=== PATIENT | male | born 1965 ===

== ENCOUNTER 2019-01-07 06:50 | Inpatient (IN) | payer OTHER ==
[~2019-01-07] VITALS: Ht 165.1 cm; Wt 85.7 kg
[2019-01-07] VITALS (16 sets, daily range): BP systolic 109–154; BP diastolic 70–96
[~2019-01-07 06:50] MED LIST: NKM
[2019-01-07] MEDS ORDERED: ceFAZolin sod 2 GM in D5W 110 ML IVPB ONE (07:00)
--- NOTE | 2019-01-07 07:15 | Pre-Procedure Note/Attestation ---
Pre-Procedure Note/Attestation Complete Prior to Procedure Planned Procedure: not applicable Procedure Narrative: Artificial disc replacement C56 Indications for Procedure Pre-Operative Diagnosis: Herniation of C56 Attestation I attest that I discussed the nature of the procedure; its benefits; risks and complications; and alternatives (and the risks and benefits of such alternatives ), prior to the procedure, with the patient (or the patient's legal sales representative printing supplies). I attest that, if there was a reasonable possibility of needing a blood transfusion, the patient (or the patient's legal sales representative printing supplies) was given the [facility] standardized written summary, pursuant to the Carlos A Mindy Blood Safety Act ([place] Health and Safety Code # 1645, as amended). I attest that I re-evaluated the patient just prior to the surgery and that there has been no change in the patient's H&P, except as documented below: Osmel Hubbard MD Jan 07, 2019 07:14
--- NOTE | 2019-01-07 07:16 | Brief Operative Note ---
Immediate Post Operative Note Operative Note Chief Complaint: Neck pain and radiculopathy Pre-op Diagnosis: Herniation of C56 Procedure: Artificial disc replacement C56 Post-op Diagnosis: same as pre-op Findings: consistent w/pre-op dx studies Surgeon: Haydee Spent Grain Dryer: Sunil Anesthesiologist: OZIEL Anesthesia: general Specimen: none Complications: none Condition: stable Fluids: IVF Estimated Blood Loss: minimal Drains: none Implant(s) used?: Yes - prodisc c sz 5 Osmel Hubbard MD Jan 07, 2019 07:16
[2019-01-07] MEDS ORDERED: HYDROmorphone 1mg/ml Carpuject IVP PRN (07:30)
[2019-01-07] MEDS ORDERED: Milk of Magnesia 30ml Ud ORAL PRN (07:30)
[2019-01-07] MEDS ORDERED: Naloxone 0.4mg/ml Inj IVP PRN (07:30)
[2019-01-07] MEDS ORDERED: Morphine Sulfate 2mg/ml Inj(IV/IM USE ONLY) IV PRN (07:30)
[2019-01-07] MEDS ORDERED: Chloraseptic Spray 20mL Bottle ORAL PRN (07:30)
[2019-01-07] MEDS ORDERED: Metoclopramide 10mg/2ml Inj IVP PRN (07:30)
[2019-01-07] MEDS ORDERED: Morphine Sulfate 4mg/ml Inj (IV USE ONLY) IV PRN ×2 (07:30)
[2019-01-07] MEDS ORDERED: ACETAMINOPHEN500 MG ORAL (07:32)
[2019-01-07] MEDS ORDERED: Midazolam 2mg/2ml Inj ONE (08:53)
[2019-01-07] MEDS ORDERED: fentaNYL 100 mcg/2 mL IV ONE (08:53)
[2019-01-07] MEDS ORDERED: Lidocaine 1% MPF 10mg/ml 5ml ONE (08:59)
[2019-01-07] MEDS ORDERED: Phenylephrine 10mg/ml Vial ONE (09:13)
[2019-01-07] MEDS ORDERED: Bupivacaine w/Epi 0.5% 30ml Vial INJ ONE (10:05)
[2019-01-07] MEDS ORDERED: Vancomycin 1gm vial IVPB ONE ×2 (10:05→10:06)
[2019-01-07] MEDS ORDERED: Gelfoam Size TOPIC ONE (10:05)
[2019-01-07] MEDS ORDERED: Thrombin 5000 units TOPIC ONE ×2 (10:05→11:54)
[2019-01-07] MEDS ORDERED: Bacitracin 50000 Units Vial ONE (10:05)
[2019-01-07] MEDS ORDERED: Ketorolac 30mg Inj ONE (10:30)
[2019-01-07] MEDS ORDERED: NS Irrig 1000ml ONE (10:30)
[2019-01-07] MEDS ORDERED: LR 1000ml ONE (10:30)
[2019-01-07] MEDS ORDERED: Sterile Water Irrig 1000ml IRRIG ONE (10:30)
[2019-01-07] MEDS ORDERED: Neostigmine 1mg/ml 10ml Inj ONE (10:30)
[2019-01-07] MEDS ORDERED: Propofol 1,000mg/ 100ml btl IV ONE (10:30)
[2019-01-07] MEDS ORDERED: Succinylcholine 20mg/ml 10ml vial ONE (10:30)
[2019-01-07] MEDS ORDERED: Zemuron 50mg/5ml Inj IV ONE (10:30)
[2019-01-07] MEDS ORDERED: Morphine Sulfate 10mg/ml Inj ONE (11:23)
[2019-01-07] MEDS ORDERED: LR 1000ml 1,000 ML IVLG SCH (11:32)
--- NOTE | 2019-01-07 11:32 | Anethesia Preoperative Eval ---
Anesthesia Pre-op PMH/ROS General Date of Evaluation: Jan 07, 2019 Time of Evaluation: 10:20 Anesthesiologist: Silvestre ASA Score: ASA 2 Mallampati Score Class I : Soft palate, uvula, fauces, pillars visible Class II: Soft palate, uvula, fauces visible Class III: Soft palate, base of uvula visible Class IV: Only hard plate visible Mallampati Classification: Class II Surgeon: Haydee Diagnosis: Cervical radiculopathy Surgical Procedure: ACDF Anesthesia History: none Family History: no anesthesia problems Allergies: Coded Allergies: No Known Allergies (Unverified , 01/07/19) Medications: see eMAR Patient NPO?: Yes NPO Date: Jan 06, 2019 NPO Time: 2300 Past Medical History Cardiovascular: Denies: HTN, CAD, NM, valve dz, arrhythmia, other Pulmonary: Denies: asthma, COPD, FRITZ, other Gastrointestinal/Genitourinary: Reports: GERD; Denies: CRI, ESRD, other Neurologic/Psychiatric: Denies: dementia, CVA, depression/anxiety, TIA, other Endocrine: Denies: DM, hypothyroidism, steroids, other HEENT: Denies: cataract (L), cataract (R), glaucoma, KLAWOCK (L), [place] (R), other Hematology/Immune: Denies: anemia, DVT, bleeding disorder, other Musculoskeletal/Integumentary: Denies: OA, RA, DJD, DDD, edema, other Other: other - overweight PMH Narrative: as above PSxH Narrative: Hemorrhoids Anesthesia Pre-op Phys. Exam Physician Exam Last Vital Signs Date Time Temp Pulse Resp B/P (MAP) Pulse Ox O2 Delivery O2 Flow Rate FiO2 01/07/19 07:45 Room Air 01/07/19 07:30 97.1 66 18 133/91 (105) 97 Constitutional: NAD Neurologic: CN 2-12 intact Cardiovascular: RRR, no M/R/G Respiratory: CTA Gastrointestinal: S/NT/ND Airway Exam Mallampati Score: Class II MO: full Neck: stiff ROM: limited Teeth: missing Dentures: no upper, no lower Anesthesia Pre-op A/P Labs see chart Studies Pre-op Studies: EKG - NSR, CXR - WNL, echo - EF 55-60% Risk Assessment & Plan Assessment: ASA 2 Plan: GA with ETT neuromonitoring Status Change Before Surgery: No Pre-Antibiotics Drug: Ancef 2 gr. Given Within 1 Hr of Incision: Yes Time Given: 10:52 New Rivers MD Jan 07, 2019 11:32
[2019-01-07] MEDS ORDERED: Glycopyrrolate 0.2mg/ml 1ml Vial ONE (11:43)
[2019-01-07] MEDS ORDERED: DiphenhydrAMINE 50mg/ml Inj IVP PRN (11:45)
[2019-01-07] MEDS ORDERED: Ketorolac 30mg Inj IV PRN (11:45)
[2019-01-07] MEDS ORDERED: Meperidine 50mg/ml Inj(FOR RIGORS ONLY) IV PRN (11:45)
[2019-01-07] MEDS ORDERED: Hydromorphone 0.5mg/0.5ml inj IVP PRN (11:45)
[2019-01-07] MEDS ORDERED: Midazolam 2mg/2ml Inj IVP PRN (11:45)
[2019-01-07] MEDS ORDERED: Acetaminophen (Non formulary) 100 ML IV ONE (11:45)
--- NOTE | 2019-01-07 12:35 | Immediate Post-Op Evaluation ---
Immediate Post-Op Evalulation Immediate Post-Op Evalulation Procedure: ACDF C5-C6 Date of Evaluation: Jan 07, 2019 Time of Evaluation: 12:35 IV Fluids: 1200 Blood Products: none Estimated Blood Loss: 50 Urinary Output: 150 Blood Pressure Systolic: 146 Blood Pressure Diastolic: 76 Pulse Rate: 68 Respiratory Rate: 20 O2 Sat by Pulse Oximetry: 98 Temperature (Fahrenheit): 97.6 Pain Score (1-10): 1 Nausea: No Vomiting: No Complications none Patient Status: reacts, patent, extubated, none Hydration Status: adequate New Rivers MD Jan 07, 2019 12:35
--- NOTE | 2019-01-07 12:39 | NUR ---
CASE MANAGEMENT:REVIEW 53 YR OLD MALE HERE FOR ELECTIVE SURGERY SI: NECK PAIN AND RADICULOPATHY 97.1 66 18 133/91 97% ON RA IS: TO SURGERY FOR; ARTIFICIAL DISC REPLACEMENT C56 IV ANCEF Q8HRS IV DECADRON Q6HRS IV DILAUDID PRN : TO MED/SURG 3 EAST POST OP
--- NOTE | 2019-01-07 14:10 | NUR ---
NURSE NOTES: PATIENT RECEIVED FROM PACU ON BRET, AOX4. SON AT BEDSIDE. REPORT RECEIVED AT BEDSIDE FROM BETTY SHOP SUPERVISOR. SURGICAL SITE ASSESSED; C/D/I.NEUROVASCULAR CHECKS WNL. DENIES WEAKNESS OR PAIN. SKIN W/D. QUESTIONS ANSWERED; NEEDS MET. PT/ SON ORIENTED TO ROOM. BED IN LOWEST AND LOCKED POSITION. CALL LIGHT WITHIN REACH. WILL CONTINUE TO MONITOR.
--- NOTE | 2019-01-07 14:17 | 48 Hour Post Anesthesia Eval ---
Post Anesthesia Evaluation Procedure: ACDF C5-C6 Date of Evaluation: Jan 07, 2019 Time of Evaluation: 14:16 Blood Pressure Systolic: 116 0: 72 Pulse Rate: 68 Respiratory Rate: 18 Temperature (Fahrenheit): 97.2 O2 Sat by Pulse Oximetry: 98 Airway: patent Nausea: No Vomiting: No Pain Intensity: 2 Hydration Status: adequate Cardiopulmonary Status: stable Mental Status/LOC: patient returned to baseline Follow-up Care/Observations: N/a Post-Anesthesia Complications: none Follow-up care needed: ready to discharge New Rivers MD Jan 07, 2019 14:17
--- NOTE | 2019-01-07 15:03 | Diagnostic Imaging Report ---
INDICATION: Pain, intraoperative TECHNIQUE: Intraoperative imaging Fluoroscopy time: 27.8 seconds Total dose: 0.95989 mGym2 Total number of images: 3 COMPARISON: None FINDINGS: 6 surgical tool initially projects over the C5 vertebral body. Subsequent images demonstrate placement of a disc prosthesis at C5-6. This appears well aligned IMPRESSION: Intraoperative imaging, as described
[2019-01-07] MEDS: NS w/KCl 20mEq 1000ml 1,000 ML IV SCH (15:19)
[2019-01-07] MEDS: ceFAZolin sod 1 GM in D5W 55 ML IV SCH (18:13)
[2019-01-07] MEDS: Dexamethasone 4mg/ml vial IVP SCH (18:13)
[2019-01-07] MEDS: Docusate 100mg cap ORAL SCH (18:13)
--- NOTE | 2019-01-07 18:54 | NUR ---
NURSE NOTES: PATIENT REMAINS STABLE. C/O "SORE THROAT". ADMINISTER CEPACOL AND THROAT ORDERED BY SURGEON. SYMPTOMS IMPROVED. TOLERATING SOFT DIET. DENIES SURGICAL ANTERIOR NECK PAIN.VSS. AFEBRILE. CMS WNL. NEUROVASCULAR CHECKS WNL. BED IN LOWEST AND LOCKED POSITION. CALL LIGHT WITHIN REACH.
--- NOTE | 2019-01-07 19:30 | NUR ---
NURSE NOTES: Received patient in no apparent distress. A&OX4. IV site patent and intact. Surgical dressing on neck noted, dry and intact. Family members are at bedside. Bed in lowest position. Call light within reach. Will continue to monitor.
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
[2019-01-08] VITALS (9 sets, daily range): BP systolic 129–157; BP diastolic 80–127
[2019-01-08] MEDS: Dexamethasone 4mg/ml vial IVP SCH (00:15)
[2019-01-08] MEDS: NS w/KCl 20mEq 1000ml 1,000 ML IV SCH ×3 (00:16→22:58)
[2019-01-08] MEDS: ceFAZolin sod 1 GM in D5W 55 ML IV SCH ×2 (01:25→10:35)
[2019-01-08] MEDS: HYDROcodone/Acetamin 7.5/325 tab ORAL PRN ×2 (01:33→23:07)
--- NOTE | 2019-01-08 03:36 | NUR ---
NURSE NOTES: Call and left message to Dr. Hubbard regarding HR 121. Waiting a call back.
--- NOTE | 2019-01-08 05:52 | NUR ---
NURSE NOTES: Dr. Hubbard called, obtained discontinue Dexamethasone and notify Dr. Poole.
--- NOTE | 2019-01-08 06:00 | NUR ---
NURSE NOTES: Call and left message to Dr. Poole regarding increased HR. Waiting a call back.
--- NOTE | 2019-01-08 07:00 | NUR ---
NURSE NOTES: Received call from Dr. Poole. Obtained EKG order.
--- NOTE | 2019-01-08 08:10 | NUR ---
HAND-OFF: Report given to Myrna HOLLAND.
--- NOTE | 2019-01-08 08:46 | General Progress Note ---
Assessment/Plan Assessment/Plan: Herniation of C56 Artificial disc replacement C56 hypertension sinus tachycardia PLAN 1. incentive spirometry 2. monitor hemodynamics; ECG 3. PT evaluation and therapy 4. Hydration 5. Pain management and blood pressure support 6. discharge once stable with outpatient follow up Subjective Allergies: Coded Allergies: No Known Allergies (Unverified , 01/07/19) Subjective increase heart rate and BP ? after decadron Objective Last 24 Hour Vital Signs Date Time Temp Pulse Resp B/P (MAP) Pulse Ox O2 Delivery O2 Flow Rate FiO2 01/08/19 05:51 98.2 111 19 145/104 (118) 95 01/08/19 04:34 98.2 110 19 146/104 (118) 95 01/08/19 04:00 98.3 115 19 139/103 (115) 95 01/08/19 03:30 98.2 121 19 138/104 (115) 95 01/07/19 23:40 98.7 106 18 112/83 (93) 95 01/07/19 21:00 Nasal Cannula 2.0 01/07/19 20:00 98.7 103 18 125/89 (101) 96 01/07/19 16:40 97.9 63 19 118/72 (87) 96 01/07/19 15:40 98.0 61 20 109/72 (84) 01/07/19 15:10 98.5 75 19 118/77 (91) 99 01/07/19 14:40 97.7 70 18 116/70 (85) 97 01/07/19 14:17 68 18 98 01/07/19 14:10 98.5 82 18 123/83 (96) 95 01/07/19 13:49 97.6 78 17 118/75 99 Nasal Cannula 3 01/07/19 13:30 70 15 126/76 100 Nasal Cannula 3 01/07/19 13:15 72 16 137/73 100 Nasal Cannula 3 01/07/19 13:10 71 17 130/78 100 Nasal Cannula 3 01/07/19 12:50 74 18 125/75 100 Nasal Cannula 3 01/07/19 12:42 70 15 154/90 100 Nasal Cannula 3 01/07/19 12:37 66 15 143/92 98 Simple Mask 6 01/07/19 12:35 68 20 98 01/07/19 12:32 97.1 72 15 146/96 100 Simple Mask 6 Intake and Output 01/07/19 01/08/19 18:59 06:59 Intake Total 1400 ml 1255 ml Output Total 350 ml 125 ml Balance 1050 ml 1130 ml Intake IV Total 1400 ml 1255 ml Output Urine Total 300 ml 125 ml Estimated Blood Loss 50 ml # Voids 1 1 Height (Feet): 5 Height (Inches): 5.00 Weight (Pounds): 189 Objective WDWN NAD clear breath sounds bilaterally without rhonchi or wheeze S1S2RR mildly tachy without MRG NABS nontender no HSM no CCE nonfocal David Poole MD Jan 08, 2019 08:46
--- NOTE | 2019-01-08 09:00 | NUR ---
NURSE NOTES: Patient is alert and oriented,respirations unlabored ,IV fluids infusing as ordered.Heart rate noted tachycardia,but heart rate is regular,no complaint of chest pain.Dermabond dressing to the throat are intact,no drainage no swelling noted at this time.Swallow without difficult.Call light within reach ,bed alarm is on.
[2019-01-08] MEDS ORDERED: Tubing IV Secondary IV ONE (09:38)
[2019-01-08] MEDS: Docusate 100mg cap ORAL SCH ×2 (10:35→19:13)
--- NOTE | 2019-01-08 11:45 | General Surgery Progress Note ---
General Surgery-Progress Note Subjective Day of Surgery: 01/07/19 Reason for Consult Postoperative day 1 Procedure Performed Artificial disc replacement C56 Chief Complaint: Laboured breathing Symptoms: improved, pain absent, other - Patient has had laboured breathing and elevated blood pressures Additional Comments Dr Tracy has been notified and responded immediately by prescribing Norvasc, CXR and bilateral lower extremity SCDs Objective Last 24 Hour Vital Signs Date Time Temp Pulse Resp B/P (MAP) Pulse Ox O2 Delivery O2 Flow Rate FiO2 01/08/19 11:12 Nasal Cannula 2.0 01/08/19 08:00 98.5 115 18 129/104 (112) 94 01/08/19 05:51 98.2 111 19 145/104 (118) 95 01/08/19 04:34 98.2 110 19 146/104 (118) 95 01/08/19 04:00 98.3 115 19 139/103 (115) 95 01/08/19 03:30 98.2 121 19 138/104 (115) 95 01/07/19 23:40 98.7 106 18 112/83 (93) 95 01/07/19 21:00 Nasal Cannula 2.0 01/07/19 20:00 98.7 103 18 125/89 (101) 96 01/07/19 16:40 97.9 63 19 118/72 (87) 96 01/07/19 15:40 98.0 61 20 109/72 (84) 01/07/19 15:10 98.5 75 19 118/77 (91) 99 01/07/19 14:40 97.7 70 18 116/70 (85) 97 01/07/19 14:17 68 18 98 01/07/19 14:10 98.5 82 18 123/83 (96) 95 01/07/19 13:49 97.6 78 17 118/75 99 Nasal Cannula 3 01/07/19 13:30 70 15 126/76 100 Nasal Cannula 3 01/07/19 13:15 72 16 137/73 100 Nasal Cannula 3 01/07/19 13:10 71 17 130/78 100 Nasal Cannula 3 01/07/19 12:50 74 18 125/75 100 Nasal Cannula 3 01/07/19 12:42 70 15 154/90 100 Nasal Cannula 3 01/07/19 12:37 66 15 143/92 98 Simple Mask 6 01/07/19 12:35 68 20 98 01/07/19 12:32 97.1 72 15 146/96 100 Simple Mask 6 I&O Intake and Output 01/07/19 01/08/19 18:59 06:59 Intake Total 1400 ml 1255 ml Output Total 350 ml 125 ml Balance 1050 ml 1130 ml Intake IV Total 1400 ml 1255 ml Output Urine Total 300 ml 125 ml Estimated Blood Loss 50 ml # Voids 1 1 Dressing: dry Wound: clean, dry, intact Drains: none Cardiovascular: RSR Respiratory: decreased breath sounds - in bilateral lower quadrants Abdomen: soft, non-tender, present bowel sounds Extremities: no edema, no tenderness, no cyanosis Assessment Post-op Diagnosis s/p C56 ADR Plan Problems: (1) HNP (herniated nucleus pulposus), cervical Assessment & Plan: I was called in regards to this pt by the night nursing team They noticed elevated blood pressures following steroid treatments So at 5am I discontinued further steroids I evaluated the patient this morning He was able to perform the incentive spirometer without difficulty His incision is soft and non swollen so there does not appear to be any hematoma or other compressing factor there however he appears in respiratory distress in regards to some laboured breathing We did a new set of vitals and his blood pressure was still elevated but he has no fevers or other signs of distress I then spoke to Dr Tracy who performed his preoperative clearance Dr Tracy has been notified and responded immediately by prescribing Norvasc, CXR and bilateral lower extremity SCDs I have ordered albuterol breathing treatments and will be evaluating him closely for his response Osmel Hubbard MD Jan 08, 2019 11:45
--- NOTE | 2019-01-08 12:02 | Diagnostic Imaging Report ---
EXAM: XR Chest, 2 Views CLINICAL HISTORY: POST-OP TECHNIQUE: Frontal and lateral views of the chest. COMPARISON: None FINDINGS: Hardware: None. Lungs/pleura: Normal. No focal consolidation. No pleural effusion or pneumothorax. Heart/mediastinum: Normal. No cardiomegaly. Soft tissues: Unremarkable. Bones: No acute fracture. Postsurgical changes of the lower cervical spine. Degenerative changes of the acromioclavicular joints. Upper abdomen: Normal. IMPRESSION: No acute disease identified.
[2019-01-08] MEDS: Albuterol ud Inhalation HHN SCH ×3 (13:57→23:13)
--- NOTE | 2019-01-08 14:03 | NUR ---
PT Note PT beltran completed, treatment initiated. Gait training initially done with the FWW; progressed to gait training without the FWW. Also noted patient to have audible wheezing during treatment; nurse was made aware. Pt needs PT services to train and instruct on proper body mechanics and exercises to improve his functional mobility and gait. Addendum: 01/08/19 at 1404 by ROSETTA SPANGLER PT Amended: Links added.
--- NOTE | 2019-01-08 14:30 | Diagnostic Imaging Report ---
EXAM: US Duplex Bilateral Lower Extremity Veins CLINICAL HISTORY: DVT TECHNIQUE: Real-time duplex ultrasound scan of the bilateral lower extremity veins integrating B-mode two-dimensional vascular structure, Doppler spectral analysis, color flow Doppler imaging and compression. COMPARISON: None FINDINGS: Right deep veins: Unremarkable. No DVT in the right common femoral, femoral, proximal deep femoral or popliteal veins. The veins demonstrate normal color flow, are normally compressible, with normal phasic flow and/or augmentation response. Right superficial veins: Unremarkable. No thrombus in the visualized right great saphenous vein. Left deep veins: Unremarkable. No DVT in the left common femoral, femoral, proximal deep femoral or popliteal veins. The veins demonstrate normal color flow, are normally compressible, with normal phasic flow and/or augmentation response. Left superficial veins: Unremarkable. No thrombus in the visualized left great saphenous vein. Soft tissues: No acute findings. No popliteal cyst. IMPRESSION: No deep venous thrombosis identified in either lower extremity.
--- NOTE | 2019-01-08 14:38 | NUR ---
CASE MANAGEMENT: REVIEW 01/08/2019 SI: NECK PAIN AND RADICULOPATHY T 97.7 HR 96 RR 18 B/P 157/127 SATS 97% ON 2L/NC NO LABS TODAY IS: TO SURGERY FOR; ARTIFICIAL DISC REPLACEMENT C5-6 IV ANCEF Q8HRS IV DECADRON Q6HRS IV DILAUDID PRN : TO MED/SURG 3 E[facility] POST OP
[2019-01-08] MEDS ORDERED: Albuterol ud Inhalation HHN SCH (15:00)
--- NOTE | 2019-01-08 19:00 | NUR ---
NURSE NOTES: Patient resting patient state he is feeling better, respirations unlabored,Heart rate 101,no complaints.dermabond dressing remains ,no bleeding noted no swelling noted.Call light within reach.
--- NOTE | 2019-01-08 19:30 | NUR ---
NURSE NOTES: Received report from SKYLER Barron. Patient alert, oriented. Neck surgical wound clean and intact. IV patent. Family visiting at bedside. Call light within reach, bed in low position, locked, side rails up x2. Will continue to monitor.
--- NOTE | 2019-01-08 20:15 | NUR ---
HAND-OFF: Report given to Dixie HOLLAND.
--- NOTE | 2019-01-08 23:05 | NUR ---
NURSE NOTES: Patient doing well, able to walk to bathroom without difficulty, steady gait.
[2019-01-09] VITALS: BP 127/79
[2019-01-09] MEDS: Albuterol ud Inhalation HHN SCH ×3 (03:21→11:47)
[2019-01-09 04:00] VITALS: BP 111/69
--- NOTE | 2019-01-09 07:30 | NUR ---
HAND-OFF: Report given to SKYLER Perez.
--- NOTE | 2019-01-09 07:30 | NUR ---
NURSE NOTES: Patient lying in bed awake. No complain of pain or distress at this time. On O2 @ 2L via NC. Surgical dressing intact and dry. IV dressing intact and dry. Bed lowest position. Call light within reach. Will continue to monitor.
[2019-01-09 08:00] VITALS: BP 105/67
[2019-01-09] MEDS: NS w/KCl 20mEq 1000ml 1,000 ML IV SCH (08:41)
[2019-01-09] MEDS: Docusate 100mg cap ORAL SCH (08:41)
[2019-01-09] MEDS: HYDROcodone/Acetamin 7.5/325 tab ORAL PRN (08:42)
--- NOTE | 2019-01-09 08:50 | NUR ---
NURSE NOTES: Spoke to regarding BP and patient and new order received. Order read back and carried out.
--- NOTE | 2019-01-09 10:18 | General Progress Note ---
Assessment/Plan Assessment/Plan: Herniation of C56 Artificial disc replacement C56 hypertension sinus tachycardia, resolved PLAN doing well CXR negative venous US negative off oxygen bp now stable dc home Subjective Allergies: Coded Allergies: No Known Allergies (Unverified , 01/07/19) Subjective much improved d/w surgery Objective Last 24 Hour Vital Signs Date Time Temp Pulse Resp B/P (MAP) Pulse Ox O2 Delivery O2 Flow Rate FiO2 01/09/19 08:00 98.4 97 18 105/67 (80) 97 01/09/19 07:12 70 18 100 Nasal Cannula 2.0 01/09/19 07:00 98 Nasal Cannula 2.0 01/09/19 07:00 60 14 98 Nasal Cannula 2.0 01/09/19 07:00 60 14 98 Nasal Cannula 2.0 01/09/19 04:00 97.9 92 16 111/69 (83) 96 01/09/19 03:32 87 18 98 Nasal Cannula 2.0 01/09/19 03:23 01/09/19 03:21 83 18 97 Nasal Cannula 2.0 01/09/19 00:00 98.1 100 18 127/79 (95) 94 01/08/19 23:24 89 18 99 Room Air 01/08/19 23:16 21 01/08/19 23:13 88 18 95 Room Air 01/08/19 21:00 Nasal Cannula 2.0 01/08/19 20:05 78 18 98 Nasal Cannula 2.0 01/08/19 20:00 94 Nasal Cannula 2.0 01/08/19 20:00 97.8 93 16 139/92 (108) 95 01/08/19 19:58 01/08/19 19:57 95 18 94 Non-Rebreather 2.0 01/08/19 19:54 95 18 94 Nasal Cannula 2.0 01/08/19 19:13 101 134/84 01/08/19 16:00 97.7 102 18 139/80 (99) 95 01/08/19 14:10 82 16 97 Nasal Cannula 2.0 01/08/19 14:00 88 16 96 Nasal Cannula 2.0 01/08/19 14:00 28 01/08/19 13:15 100 138/85 01/08/19 13:04 100 138/85 (102) 7/27/19 12:00 97.7 96 18 157/127 (137) 97 01/08/19 11:12 Nasal Cannula 2.0 Intake and Output 01/08/19 01/09/19 18:59 06:59 Intake Total 800 ml 600 ml Balance 800 ml 600 ml Intake Oral 300 ml IV Total 500 ml 600 ml # Voids 1 Height (Feet): 5 Height (Inches): 5.00 Weight (Pounds): 189 Objective WDWN NAD clear breath sounds bilaterally without rhonchi or wheeze [id number] mildly tachy without MRG NABS nontender no HSM no CCE nonfocal David Poole MD Jan 09, 2019 10:18
--- NOTE | 2019-01-09 10:52 | NUR ---
NURSE NOTES: Seen and evaluated by and new order received. Order read back and carried out.
--- NOTE | 2019-01-09 11:05 | NUR ---
NURSE NOTES: Spoke to regarding discharge and new order received. Order read back and carried out.
[2019-01-09] MEDS ORDERED: PROAIR HFA8.5 GM INH (11:43)
[2019-01-09] MEDS ORDERED: NORCO 10-325 T1 EACH ORAL (11:44)
[2019-01-09] MEDS ORDERED: CARISOPRODOL350 MG ORAL (11:45)
[2019-01-09 12:00] VITALS: BP 107/69
--- NOTE | 2019-01-09 13:40 | NUR ---
NURSE NOTES: Patient discharged with family member in stable condition. Discharge instruction given to patient and verbalized understanding. Prescriptions and belonging given to patient. IV and ID removed. Patient ambulated out with all personal belongings with steady gait.
--- NOTE | 2019-01-11 09:48 | Discharge Summary ---
Discharge Summary Hospital Course Date of Admission Jan 07, 2019 at 06:50 Date of Discharge Jan 09, 2019 at 13:40 Admitting Diagnosis Herniated nucleus pulposus, radiculopathy Reason for Hospitalization: Elective surgery BINDU Cruz is a 53 year old male who was admitted on Jan 07, 2019 at 06:50 for Herniated Nucleus Pulposus,Pain, Radiculopathy Consultations Dr Poole -IM/pulmo Procedures s/p 01/07/[address] Hubbard 1. Anterior cervical diskectomy and artificial disc replacement of C5-C6 using a Synthes ProDisc-C size 5 height. 2. Use of intraoperative microscope. 3. Motor-evoked potential monitoring. 4. Somatosensory-evoked potential monitoring. 5. Supervision and interpretation of fluoroscopy. Hospital Course status post surgery initially IV fluids s/p perioperative antibiotics neurovascular status closely monitored, stable incision clean, dry , and intact pain management addressed ; pain controlled on postop day #1 patient developed shortness of breath and tachycardia supplemental oxygen provided as needed to keep pulse oximetry above 92% hand held nebulizing therapy with bronchodilators provided CXR revealed no acute cardiopulmonary pathology venous Duplex bilateral lower extremities revealed no evidence of acute DVT blood pressure was managed with Norvasc IV hydration continued sinus tachycardia resolved, blood pressure stable patient was wean from oxygen , pulse oximetry was stable on room air patient was hemodynamically stable ambulated fall precautions maintained; safe for ambulation DVT prophylaxis with SCR provided use of incentive spirometry was encouraged while in the bed intially started on liquid and advance as toelrated, was able tolerated diet , IV fluids discontinued Chloraseptic spray provided for comfort GI prophylaxis provided antiemetics were on board as needed voided freely bowel regimen instituted patient was stable for discharge discharge instructions provided follow up with surgeon in clinic as advised by surgeon FINAL DIAGNOSES 1. Intractable neck pain. 2. Radiculopathy. 3. Herniation, C5-C6. 4. Neuroforaminal stenosis, C5-C6. 5. Stenosis. 6. s/p ACDF C5-C6 7. HTN 8. Sinus tachycardia Discharge Medications Continued Medications: Albuterol Sulfate* (Proair Hfa*) 8.5 Gm Hfa.aer.ad 2 PUFFS INH Q4HR, #8.5 GM 0 Refills (This prescription has been renewed) Carisoprodol* (Carisoprodol*) 350 Mg Tablet 350 MG ORAL BID, #90 TAB (This prescription has been renewed) Hydrocodone Bit/Acetaminophen 10-325* ([place] 10-325*) 1 Each Tablet 1 TAB ORAL Q8HR PRN for For Pain, #90 TAB 0 Refills (This prescription has been renewed) PRN PAIN Discharge Condition Upon Discharge: stable Discharge Disposition Patient was discharged to Home (01) Discharge Instructions Discharge Instructions Special Instructions I have been assigned to complete a D/C Summary on this account. I was not involved in the patient management Wanda Sanchez NP Jan 11, 2019 09:48
== END 2019-01-09 13:40 | disposition home or self-care (01) | DRG 518 ==
LOC: SDSOVERFLO 06:50 → 3E 14:12
PROC: 0RR30JZ Replacement of Cervical Vertebral Disc with Synthetic Substitute, Open Approach (ICD-10-PCS; principal; 2019-01-07 09:30)
DX: M50.122 Cervical disc disorder at C5-C6 level with radiculopathy (principal); M48.02 Spinal stenosis, cervical region; I10 Essential (primary) hypertension; R00.0 Tachycardia, unspecified
CPT/HCPCS: 36415; 71046; 72040; 76000; 86850; 86900; 86901; 87081; 93970; 94640; 94664; J2250; J2370; J2710